=== PATIENT | female | born 1940 | race Two or more races ===

== ENCOUNTER 2025-04-02 12:59 | Inpatient (IN) | payer OTHER ==
[~2025-04-02] VITALS: Ht 149.9 cm; Wt 45.4 kg
[2025-04-02] MEDS ORDERED: LEVALBUTEROL HCL 0.63 MG/3 ML SOLUTION IH ONE ×2 (13:15→19:51)
[2025-04-02] MEDS ORDERED: CEFTRIAXONE SODIUM 1,000 MG VIAL IV ONE (13:15)
[2025-04-02 13:25] LABS: ABG PH 7.379 (7.35-7.45); ABG PO2 71.3 mmHg (80-100); ABG pCO2 39.7 mmHg (35-45); BASO % 0.1 % (0.1-1.2); BICARBONATE 22.9 mmol/l (23-25); HEMOGLOBIN 10.8 g/dL (11.2-15.7); LYMPH # 2.02 (1.18-3.74); LYMPH % 14.7 % (19.3-53.1); MEAN CORPUSCULAR HEMOGLOBIN 27.8 pg (25.6-32.2); MONO # 0.83 (0.24-0.82); MONO % 6.1 % (4.7-12.5); NEUT % 78.9 % (34.0-71.1); PLATELET COUNT 339 K/uL (163-369); RED BLOOD COUNT 3.88 M/uL (3.93-5.22); RED CELL DISTRIBUTION WIDTH 14.8 % (11.6-14.4); SaO2 93.6 %; Tco2 24.2 mmol/l
[2025-04-02 13:50] LABS: PARTIAL THROMBOPLASTIN TIME 23.2 SECONDS (22.0-34.0); PROTHROMBIN TIME 10.9 SECONDS (9.0-11.5)
[2025-04-02 13:56] LABS: allen test SATISFACTORY; mode NON REBREATHING MASK; o2 100 %; puncture site RADIAL RIGHT
[2025-04-02 14:06] LABS: ANION GAP 13 (10.0-20.0); BLOOD UREA NITROGEN 23 mg/dL (7-18); BUN CREA RATIO 24 (7.0-25.0); CALCIUM 8.8 mg/dL (8.5-10.1); CARBON DIOXIDE 25 mEq/L (21-32); CHLORIDE 110 mmol/L (98-107); CREATININE SERUM 0.97 mg/dL (0.55-1.02); GFR 54.58; GLUCOSE FASTING 144 mg/dL (65-100); OSMOLALITY SERUM 293 MOSM/KG (275-295); POTASSIUM 3.61 mEq/L (3.5-5.1); SODIUM 144 mmol/L (136-145)
[2025-04-02 14:11] LABS: CKMB < 1.0 NG/ML (0.5-3.6)
[2025-04-02] MEDS ORDERED: 0.9 % SODIUM CHLORIDE 1,000 ML IV SCH ×2 (15:00→18:30)
[2025-04-02 15:15] LABS: PH,URINE 6.5 (5.0-8.0); URINE APPEARANCE Cloudy; URINE BILIRRUBIN Negative (NEGATIVE); URINE BLOOD Large; URINE COLOR Dark Yellow; URINE GLUCOSE Negative (NEGATIVE); URINE KETONE Trace (NEGATIVE); URINE LEUKOCYTE Trace; URINE NITRATE Negative
[2025-04-02 15:19] LABS: URINE CAST 6.77 uL (0.0-1.40); URINE EPITHELIAL CELLS 29.4 uL (0.0-38.8); URINE RBC 252.4 uL (0.0-20.8); URINE WBC 57.1 uL (0.0-23.2)
[2025-04-02 15:25] LABS: COVID-19 AG NEGATIVE (NEGATIVE); INFLUENZA A AG NEGATIVE (NEGATIVE); INFLUENZA B AG NEGATIVE (NEGATIVE)
[2025-04-02 15:26] LABS: URINE PROTEIN 100 (NEGATIVE)
[2025-04-02 15:40] LABS: TYPE CELLS RENAL TUBULAR
[2025-04-02] MEDS ORDERED: FAMOTIDINE/PF 20 MG in 0.9 % SODIUM CHLORIDE 8 ML IV PUSH SCH (18:34)
[2025-04-02] MEDS ORDERED: ENOXAPARIN SODIUM 40 MG/0.4 ML SYRINGE SUBCUTANEO SCH (18:35)
[2025-04-02] MEDS ORDERED: PIPERACILLIN/TAZOBACTAM SODIUM 3.375 GM in DEXTROSE 5 % IN WATER 100 ML IV SCH (18:35)
[2025-04-02] MEDS ORDERED: ACETAMINOPHEN 500 MG GEL..CAP PO PRN (18:45)
[2025-04-02] MEDS ORDERED: ONDANSETRON HCL 4 MG in 0.9 % SODIUM CHLORIDE 50 ML IV PRN (18:45)
[2025-04-02 18:56] VITALS: BP 124/61; O2SAT 100
[2025-04-02] MEDS ORDERED: PIPERACILLIN/TAZOBACTAM SODIUM 3.375 GM VIAL IV ONE (19:13)
[2025-04-02] MEDS ORDERED: ENOXAPARIN SODIUM 40 MG/0.4 ML SYRINGE SUBCUTANEO ONE (19:13)
[2025-04-02] MEDS ORDERED: FAMOTIDINE/PF 20 MG/2 ML VIAL ONE (19:14)
[2025-04-02] MEDS ORDERED: LEVALBUTEROL HCL 1.25 MG/3 ML SOLUTION IH SCH (20:00)
[2025-04-02 22:19] LABS: ABG PH 7.423 (7.35-7.45); ABG PO2 154.9 mmHg (80-100); ABG pCO2 34.9 mmHg (35-45); BASE EXCESS -1.4 mmol/l; BICARBONATE 22.3 mmol/l (23-25); SaO2 99.4 %
[2025-04-02 22:20] LABS: Tco2 23.4 mmol/l; allen test SATISFACTORY; mode VENTURY MASK; o2 50 %; puncture site RADIAL RIGHT
[2025-04-03] VITALS (8 sets, daily range): BP systolic 122–133; BP diastolic 66–72; O2SAT 93–99
[2025-04-03] MEDS ORDERED: ONDANSETRON HCL 2 MG/ML VIAL ONE (07:40)
[2025-04-03] MEDS ORDERED: FAMOTIDINE/PF 20 MG/2 ML VIAL ONE (07:40)
[2025-04-03] MEDS ORDERED: PIPERACILLIN/TAZOBACTAM SODIUM 3.375 GM VIAL IV ONE (07:41)
[2025-04-03] MEDS ORDERED: METOPROLOL SUCCINATE 25 MG TAB.SR.24H PO SCH (09:00)
[2025-04-03] MEDS ORDERED: SIMVASTATIN 40 MG TABLET PO SCH (17:00)
[2025-04-03] MEDS ORDERED: DONEPEZIL HCL 10 MG TABLET PO SCH (17:00)
[2025-04-03] MEDS ORDERED: TRAZODONE HCL 50 MG TABLET PO SCH (21:00)
[2025-04-04] VITALS (9 sets, daily range): BP systolic 111–131; BP diastolic 49–66; O2SAT 91–98
[2025-04-04 05:19] LABS: BASO % 0.4 % (0.1-1.2); EOS # 0.02 (0.04-0.54); EOS % 0.2 % (0.7-7.0); LYMPH # 1.46 (1.18-3.74); LYMPH % 17.9 % (19.3-53.1); MEAN CORPUSCULAR HEMOGLOBIN 26.9 pg (25.6-32.2); MONO % 9.8 % (4.7-12.5); NEUT # 5.82 (1.56-6.13); NEUT % 71.5 % (34.0-71.1); PLATELET COUNT 251 K/uL (163-369); RED CELL DISTRIBUTION WIDTH 14.9 % (11.6-14.4)
[2025-04-04 05:22] LABS: HEMATOCRIT 26.4 % (34.1-44.9); HEMOGLOBIN 8.6 g/dL (11.2-15.7)
[2025-04-04 05:46] LABS: ALBUMIN 2.6 gm/dL (3.4-5.0); BILIRUBIN TOTAL 1.58 mg/dL (0.3-1.2); CALCIUM 8.4 mg/dL (8.5-10.1); CREATININE SERUM 0.7 mg/dL (0.55-1.02); GFR 79.53; GLOBULINA 2.6 G/DL (2.4-3.5); MAGNESIUM 1.9 mg/dL (1.8-2.4); PHOSPHOROUS 2.2 mg/dL (2.5-4.9); POTASSIUM 3.1 mEq/L (3.5-5.1); TOTAL PROTEIN 5.2 gm/dL (6.4-8.2)
[2025-04-04 05:52] LABS: ABG PH 7.455 (7.35-7.45); ABG PO2 78.8 mmHg (80-100); ABG pCO2 35.9 mmHg (35-45); BASE EXCESS 1.2 mmol/l; BICARBONATE 24.7 mmol/l (23-25); SaO2 96.3 %; Tco2 25.8 mmol/l
[2025-04-04 05:55] LABS: allen test SATISFACTORY; mode ROOM AIR; o2 21 %; puncture site RADIAL LEFT
[2025-04-04] MEDS ORDERED: POTASSIUM BICARBONATE/CIT AC 25 MEQ TABLET.EFF PO STA (10:56)
[2025-04-04] MEDS ORDERED: DEXTROSE 5 % IN WATER 1,000 ML IV SCH (11:00)
[2025-04-04] MEDS ORDERED: POTASSIUM CHLORIDE 20MEQ/100ML H2O PB IV NR (11:15)
[2025-04-04] MEDS ORDERED: SOD FERRIC GLUC COMPLX/SUCROSE 62.5 MG in 0.9 % SODIUM CHLORIDE 50 ML IV SCH (12:00)
[2025-04-04] MEDS ORDERED: IRON FUM,PS/FOLIC/BCOMP,C NO.9 1 CAP CAPSULE PO SCH (12:20)
[2025-04-04] MEDS ORDERED: Cyanocobalamin/Mecobalamin 1 TAB.SL SL SCH (12:21)
[2025-04-04] MEDS ORDERED: POTASSIUM PHOS,M-BASIC-D-BASIC 15 MM in 0.9 % SODIUM CHLORIDE 250 ML IV NR (13:00)
[2025-04-05 00:56] VITALS: O2SAT 97
[2025-04-05 01:17] VITALS: BP 130/66; O2SAT 95
[2025-04-05 04:57] VITALS: O2SAT 97
[2025-04-05 06:21] LABS: BASO % 0.4 % (0.1-1.2); EOS # 0.09 (0.04-0.54); EOS % 1.1 % (0.7-7.0); HEMATOCRIT 28.3 % (34.1-44.9); HEMOGLOBIN 9.1 g/dL (11.2-15.7); LYMPH # 1.56 (1.18-3.74); LYMPH % 19.7 % (19.3-53.1); MEAN CORPUSCULAR HEMOGLOBIN 27.2 pg (25.6-32.2); MONO # 0.78 (0.24-0.82); MONO % 9.9 % (4.7-12.5); NEUT # 5.43 (1.56-6.13); NEUT % 68.6 % (34.0-71.1); PLATELET COUNT 271 K/uL (163-369); RED BLOOD COUNT 3.34 M/uL (3.93-5.22)
[2025-04-05 06:46] LABS: ALBUMIN 2.5 gm/dL (3.4-5.0); BILIRUBIN TOTAL 1.8 mg/dL (0.3-1.2); CALCIUM 8.3 mg/dL (8.5-10.1); CREATININE SERUM 0.67 mg/dL (0.55-1.02); GFR 83.65; GLOBULINA 2.7 G/DL (2.4-3.5); POTASSIUM 3.91 mEq/L (3.5-5.1); TOTAL PROTEIN 5.2 gm/dL (6.4-8.2)
[2025-04-05 09:00] VITALS: O2SAT 97
[2025-04-05 09:37] VITALS: BP 145/79; O2SAT 97
[2025-04-05] MEDS ORDERED: AMINO ACIDS/PROTEIN HYDROLYS 30 ML BLIST.PACK PO SCH (13:00)
[2025-04-05 13:36] VITALS: O2SAT 96
[2025-04-05] MEDS ORDERED: LEVOFLOXACIN750 MG PO (14:57)
[2025-04-05] MEDS ORDERED: INTEGRA PLUS C1 EACH PO (14:57)
[2025-04-05] MEDS ORDERED: INTESTINEX680 M1 PO (14:57)
[2025-04-05] MEDS ORDERED: VITAMIN B-121000 MC2 SL (14:58)
[2025-04-05] MEDS ORDERED: PROTEINEX-18 LI30 ML PO (14:59)
[2025-04-06] MEDS ORDERED: FAMOtidine 20 MG TABLET PO SCH (09:00)
== END 2025-04-05 15:19 | disposition home or self-care (01) | DRG 177 ==
LOC: ER 12:59 → MEDI 18:50
PROVIDERS: Emergency Medicine; General Practice; ADMIT Internal Medicine; ATTEND Internal Medicine
PROC: 5A0945A Assistance with Respiratory Ventilation, 24-96 Consecutive Hours, High Flow/Velocity Cannula (ICD-10-PCS; principal; 2025-04-02)
PROC: BB24ZZZ Computerized Tomography (CT Scan) of Bilateral Lungs (ICD-10-PCS; 2025-04-02)
PROC: 4A12X4Z Monitoring of Cardiac Electrical Activity, External Approach (ICD-10-PCS; 2025-04-02)
PROC: 3E0F7GC Introduction of Other Therapeutic Substance into Respiratory Tract, Via Natural or Artificial Opening (ICD-10-PCS; 2025-04-02)
DX: J69.0 Pneumonitis due to inhalation of food and vomit (principal); A41.9 Sepsis, unspecified organism; N39.0 Urinary tract infection, site not specified; E87.0 Hyperosmolality and hypernatremia; E07.89 Other specified disorders of thyroid; D50.8 Other iron deficiency anemias; D51.9 Vitamin B12 deficiency anemia, unspecified; R13.19 Other dysphagia; G30.8 Other Alzheimer's disease; F02.C0 Dementia in other diseases classified elsewhere, severe, without behavioral disturbance, psychotic disturbance, mood disturbance, and anxiety; E78.5 Hyperlipidemia, unspecified; Z74.01 Bed confinement status; B96.20 Unspecified Escherichia coli [E. coli] as the cause of diseases classified elsewhere